=== PATIENT | female | born 1995 | race Caucasian/White ===

== ENCOUNTER → 2017-09-05 | Outpatient (CLI) | payer OTHER | LOC: COL.RAD 09:26 | DX: M22.41 Chondromalacia patellae, right knee (principal); M25.461 Effusion, right knee ==

== ENCOUNTER → 2018-11-01 | Outpatient (CLI) | payer OTHER | LOC: COL.RAD 10:20 | DX: R10.11 Right upper quadrant pain (principal); R74.8 Abnormal levels of other serum enzymes; L29.9 Pruritus, unspecified ==